=== PATIENT | male | born 1955 | race Caucasian/White ===

== ENCOUNTER 2022-12-31 12:07 | Outpatient (CLI) | payer MEDICARE | END 2022-12-31 12:08 | disposition home or self-care (01) | LOC: CSHULT 12:07 | PROVIDERS: ATTEND General Practice | DX: Z13.6 Encounter for screening for cardiovascular disorders (principal) | CPT/HCPCS: 76706 ==

== ENCOUNTER 2025-02-14 10:27 | Outpatient (CLI) | payer MEDICARE | END 2025-02-14 10:28 | disposition home or self-care (01) | LOC: CSHSLEEP 10:27 | PROVIDERS: ATTEND Student in an Organized Health Care Education/Training Program | DX: G47.33 Obstructive sleep apnea (adult) (pediatric) (principal); R51.9 Headache, unspecified; E66.9 Obesity, unspecified; R06.83 Snoring; I10 Essential (primary) hypertension; Z68.34 Body mass index [BMI] 34.0-34.9, adult; R09.02 Hypoxemia; G47.10 Hypersomnia, unspecified | CPT/HCPCS: 95800 ==